=== PATIENT | female | born 1970 | race Caucasian/White ===

== ENCOUNTER 2018-01-28 18:01 | Emergency (ER) | payer MEDICAID ==
[2018-01-28 18:11] VITALS: TEMP 99.1
--- NOTE | 2018-01-28 18:25 | CPEKG ---
Heart Rate: 80 RR Interval: 750 P-R Interval: 160 QRSD Interval: 86 QT Interval: 388 QTC Interval: 448 P [place]: 70 QRS [place]: 70 T Wave [place]: 67 EKG Severity - NORMAL ECG - EKG Impression: SINUS RHYTHM Electronically Signed By: Bo Clark 28-Jan-2018 22:02:59
[2018-01-28 18:35] LABS: PLATELET COUNT 225 10^3/uL (150-400)
[2018-01-28 18:45] LABS: INR 1.02 (0.83-1.16); PROTIME(PATIENT) 13.6 SEC (12.0-15.0)
--- NOTE | 2018-01-28 19:09 | EDPHY ---
H & P Stated Complaint: CP Time Seen by Provider: 01/28/18 18:23 - Personal History LMP (Females 10-55): 8-14 Days Ago Current Tetanus/Diphtheria Vaccine: Yes Current Tetanus Diphtheria and Acellular Pertussis (TDAP): Yes - Medical/Surgical History Hx Asthma: No Hx Chronic Respiratory Disease: No Hx Diabetes: No Hx Cardiac Disease: No Hx Renal Disease: No Hx Cirrhosis: No Hx Alcoholism: No Hx HIV/AIDS: No Hx Splenectomy or Spleen Trauma: No Other PMH: tubaligation, - Social History Smoking Status: Never smoked Constitutional: Initial Vital Signs Temperature (C) 37.3 C 01/28/18 18:09 Heart Rate 84 01/28/18 18:09 Respiratory Rate 16 01/28/18 18:09 Blood Pressure 113/86 H 01/28/18 18:09 O2 Sat (%) 99 01/28/18 18:09 O2 Delivery Mode Room Air Allergies/Adverse Reactions: No Known Allergies Allergy (Unverified 01/28/18 18:09) Home Medications: Medication Instructions Recorded NK [No Known Home Meds] 01/28/18 Medical Decision Making - Diagnostics Imaging: I viewed and interpreted images myself ED Course/Re-evaluation: CHIEF COMPLAINT: Palpitations, chest heaviness HISTORY OF PRESENT ILLNESS: The patient is a 47 y/o female complaining of intermittent "fluttery" chest palpitations "followed by a heaviness that makes me not breathe very well" for the last 2-3 days. When her palpitations are present they are associated with lightheadedness. She denies caffeine or other stimulant use or any other ingestions. She has also noticed over the last couple weeks she becomes shaky while climbing, which is distinct from muscle fatigue and abnormal for her. She denies nausea, vomiting, diarrhea, constipation, cough, recent illness, recent trauma, or any other symptoms. She notes she is preparing to move to [place] and thinks her symptoms could be related to stress for this upcoming move. She has not had a prior cardiac work up. She does have a familial history of cardiac disease in her father with MIs in his 60s and 70s. No other cardiac risk factors. REVIEW OF SYSTEMS: A 10 point review of systems was performed and is negative with the exception of the elements mentioned in the history of present illness. PHYSICAL EXAM: HR, BP, O2 Sat, RR. Temp noted General Appearance: Alert, well hydrated, appropriate, and non-toxic appearing. Head: Atraumatic without scalp tenderness or obvious injury Eyes: Pupils equal, round, reactive to light and accommodation, EOMI, no trauma , no injection. Nose: Atraumatic, no rhinorrhea, clear. Throat: Mucus membranes moist. Neck: Supple, non-tender, no lymphadenopathy. Respiratory: No retractions, no distress, no wheezes, and no accessory muscle use. Lungs are clear to auscultation bilaterally. Cardiovascular: Regular rate and rhythm, no murmurs, rubs, or gallops. Good capillary refill all extremities. Gastrointestinal: Abdomen is soft, non-tender, non-distended, no masses, no rebound, no guarding, no peritoneal signs. Musculoskeletal: Normal active ROM of all extremities, atraumatic. Neurological: Alert, appropriate, and interactive. The patient has non-focal cranial nerves, motor, sensory, and cerebellar exam. Skin: No rashes, good turgor, no nodules on palpation. PAST MEDICAL HISTORY: Denies PAST SURGICAL HISTORY: Tubal ligation FAMILY HISTORY: Father had KS in 60s and in 70s from [place], mother had stroke SOCIAL HISTORY: Moving to [place] next week. Very active. Nonsmoker. No alcohol use. No caffeine. DIAGNOSTICS/PROCEDURES/CRITICAL CARE TIME: The 12 lead EKG was interpreted by myself. Sinus mechanism. See hard copy and/ or "tracemaster" electronic copy for interpretation. Chest x-ray: normal DIFFERENTIAL DIAGNOSIS: The differential diagnosis for the patient's symptoms included but was not limited to arrhythmia, myocardial ischemia, pulmonary embolus, chest wall pain, pleural inflammation, and pulmonary infectious causes. MEDICAL DECISION MAKING: This is a well-appearing and healthy 47 y/o female who presents for evaluation of a 2-3 day history of recurrent palpitations with associated chest heaviness and lightheadedness. She has no risk factors for cardiac disease apart from a father with MIs in his 60s and 70s. She is asymptomatic upon assessment here. Her exam and EKG are completely normal. Her symptoms could represent an arrhythmia that we are not picking up on here. Plan for IV, labs, chest x-ray. Labs are normal. Reassessed patient and discussed work up. She remains asymptomatic with a normal exam and feels ready to go home. I've recommended following up with cardiology for Holter monitor. Return precautions discussed. She is comfortable with this plan. - Data Points Laboratory Results: Laboratory Results 01/28/18 18:25 01/28/18 18:25 01/28/1818 01/28/18 18:25 18:25 18:25 WBC 5.11 10^3/uL 10^3/uL (3.80-9.50) RBC 3.88 10^6/uL L 10^6/uL (4.18-5.33) Hgb 12.6 g/dL g/dL (12.6-16.3) Hct 37.3 % L % (38.0-47.0) MCV 96.1 fL fL (81.5-99.8) MCH 32.5 pg pg (27.9-34.1) MCHC 33.8 g/dL g/dL (32.4-36.7) RDW 12.2 % % (11.5-15.2) Plt Count 225 10^3/uL 10^3/uL (150-400) MPV 10.0 fL fL (8.7-11.7) Neut % (Auto) 61.7 % % (39.3-74.2) Lymph % (Auto) 27.4 % % (15.0-45.0) [place] % (Auto) 7.6 % % (4.5-13.0) Eos % (Auto) 2.3 % % (0.6-7.6) Baso % (Auto) 0.8 % % (0.3-1.7) Nucleat RBC Rel Count 0.0 % % (0.0-0.2) Absolute Neuts (auto) 3.15 10^3/uL 10^3/uL (1.70-6.50) Absolute Lymphs (auto) 1.40 10^3/uL 10^3/uL (1.00-3.00) Absolute Monos (auto) 0.39 10^3/uL 10^3/uL (0.30-0.80) Absolute Eos (auto) 0.12 10^3/uL 10^3/uL (0.03-0.40) Absolute Basos (auto) 0.04 10^3/uL 10^3/uL (0.02-0.10) Absolute Nucleated RBC 0.00 10^3/uL 10^3/uL (0-0.01) Immature Gran % 0.2 % % (0.0-1.1) Immature Gran # 0.01 10^3/uL 10^3/uL (0.00-0.10) PT 13.6 SEC SEC (12.0-15.0) INR 1.02 (0.83-1.16) APTT 27.5 SEC SEC (23.0-38.0) D-Dimer 0.30 ug/mLFEU ug/mLFEU (0.00-0.50) Sodium 138 mEq/L mEq/L (135-145) Potassium 3.7 mEq/L mEq/L (3.5-5.2) Chloride 105 mEq/L mEq/L (97-110) Carbon Dioxide 24 mEq/l mEq/l (22-31) Anion Gap 9 mEq/L mEq/L (8-16) BUN 12 mg/dL mg/dL (7-23) Creatinine 0.6 mg/dL mg/dL (0.6-1.0) Estimated GFR > 60 Glucose 111 mg/dL H mg/dL (70-100) Calcium 9.2 mg/dL mg/dL (8.5-10.4) Troponin I < 0.012 ng/mL ng/mL (0.000-0.034) NT-Pro-B Natriuret Pep 78 pg/mL pg/mL (0-125) Departure - Departure Disposition: Home, Routine, Self-Care Clinical Impression: Palpitations Condition: Good Instructions: Heart Palpitations (ED) Additional Instructions: Follow up with [facility] on Tuesday to schedule a Holter monitor evaluation. Return to the ED for any worsening of condition. Referrals: Hamzah Correa MD [Medical Doctor] - As per Instructions Report Scribed for: Bo Clark Report Scribed by: Nely Griffin Date of Report: 01/28/18 Time of Report: 19:09
[2018-01-28 19:19] VITALS: BP 115/63; PULSE 81; RESP 18; O2SAT 96
== END 2018-01-28 19:17 | disposition home or self-care (01) ==
DX: R00.2 Palpitations (principal)

== ENCOUNTER 2018-10-31 11:46 | Emergency (ER) | payer MEDICAID ==
[2018-10-31 11:52] VITALS: BP 110/63
--- NOTE | 2018-10-31 12:18 | EDPHY ---
H & P Smoking Status: Never smoked Time Seen by Provider: 10/31/18 12:04 HPI/ROS: CLINICAL IMPRESSION: Subungual foreign body, right thumb ASSESSMENT/PLAN: 48-year-old female presents to the emergency department with a foreign body beneath the nail of the right thumb. Patient received a digital block with good anesthesia and a large 1 cm wooden splinter was removed from beneath the nail of the right thumb. No subungual hematoma or other detectable foreign body. Home care discussed, PCP follow-up recommended, warning signs return to ED outlined and discharge. DIFFERENTIAL DX: Foreign body, subungual hematoma ED PROCEDURES:] Patient received a digital block to the right thumb using 1% bupivacaine without epinephrine at the MCP joints. A total of 6 mL of anesthetic was used. After insuring good anesthesia, I was able to remove a large 1 cm wooden splinter from beneath the nail bed. No evidence of subungual hematoma or residual foreign body. CHIEF COMPLAINT: Splinter under nail of right thumb HPI: 48-year-old [id number] female presents to the emergency department with a foreign body beneath the nail bed of the right thumb. Patient was sent from Urgent Care. She reports tetanus up-to-date. She was washing a wooden spatula when she slipped and sustained a splinter under the thumb. She was unable to remove this on her own. PAST MEDICAL HISTORY: None reported Pertinent Past Surgical History: Noncontributory Family History: Noncontributory Social History: Otherwise healthy ROS: A full 10 point review of systems was negative except for those mentioned in HPI. PHYSICAL EXAM: General Appearance: Alert, oriented, appropriate, cooperative, NAD, well hydrated, non-toxic appearing, VSS, no hypoxia. Skin: Warm, dry, no rashes, no nodules on palpation. Musculoskeletal: Full range of motion of all fingers and thumb on the right hand. Distal 2 point discrimination intact. Foreign body visible under the nail bed of the right thumb. Cap refill 2 sec. MEDICAL DECISION MAKING: Patient was seen independently. Secondary supervising physician at time of evaluation was Dr. Roper . Diagnosis: Subungual foreign body to the right thumb . New, requires workup Summary: See Assessment and Plan for summary of ED visit Patient Progress: Improved. (Stephen Dasilva) Constitutional: Initial Vital Signs Temperature (C) 36.3 C 10/31/18 11:49 Heart Rate 65 10/31/18 11:49 Respiratory Rate 18 10/31/18 11:49 Blood Pressure 110/63 10/31/18 11:49 O2 Sat (%) 98 10/31/18 11:49 O2 Delivery Mode Room Air Allergies/Adverse Reactions: No Known Allergies Allergy (Unverified 10/31/18 11:52) Home Medications: Medication Instructions Recorded NK [No Known Home Meds] 01/28/18 MDM/Departure - MDM ED Course/Re-evaluation: I did not see this patient while she was in the emergency department. However her care was discussed with the PA while the patient was in the department. I agree with treatment plan and management (Neymar Roper) - Depart Disposition: Home, Routine, Self-Care Clinical Impression: Foreign body finger Condition: Good Instructions: Soft Tissue Foreign Body (ED) Additional Instructions: DISCHARGE INSTRUCTIONS FROM YOUR DOCTOR Thank you for visiting our emergency department today. Please keep in mind that discharge from the emergency department does not mean that there is nothing wrong - it simply means that we have not identified an emergency condition that requires further evaluation or treatment in the hospital. You should always plan to follow up with primary care for re-evaluation of your condition in the next 2-3 days. If you have been referred to a specialist, please call as soon as possible (today or tomorrow) to schedule your follow up appointment at the appropriate time. A large splinter was removed from beneath the right thumbnail. Please soak this and warm soapy soaks several times a day for the next 2 days. Monitor symptoms closely. Return to the emergency department for persistent pain, significant swelling or redness to the thumb, warmth or red streaks going up the hand, fevers or chills, or any other concern for infection. People present with illnesses and injuries in different ways, and it is always possible that we have missed something. You may always return for re-evaluation if symptoms worsen or if they are not improving or if you develop new/different symptoms. Again, thank you for choosing our emergency department. We hope that you feel better. Referrals: Nika Venegas, [facility] [Primary Care Provider] - 2-3 days, if not improved
== END 2018-10-31 12:40 | disposition home or self-care (01) ==
DX: S60.351A Superficial foreign body of right thumb, initial encounter (principal); W45.8XXA Other foreign body or object entering through skin, initial encounter